=== PATIENT | female | born 1970 | race Caucasian/White ===

== ENCOUNTER → 2023-05-19 | Day surgery (SDC) | payer OTHER ==
[~2023-05-19] MED LIST: CEFAZOLIN SODIUM 1,000 MG VIAL IV ONE; CEFAZOLIN SODIUM 1,000 MG VIAL ONE; ENOXAPARIN SODIUM 40 MG/0.4 ML SYRINGE SUBCUTANEO ONE; EZETIMIBE-SIMV1 EACH; LIDOCAINE HCL/EPINEPHRINE 10MG/ML 1% 50ML IJ ONE; MAGNESIUM400 M1; NEXIUM; POVIDONE-IODINE 118 ML BOTT TOP ONE; VITAMIN B12; VITAMINA D3; ZESTORETIC 20-1 EACH
== END | disposition home or self-care (01) ==
LOC: ADM 05-18 15:00 → CIR.AMB 06:00
PROVIDERS: ATTEND Specialist
DX: T85.49XA Other mechanical complication of breast prosthesis and implant, initial encounter (principal); I10 Essential (primary) hypertension; K21.9 Gastro-esophageal reflux disease without esophagitis; E78.00 Pure hypercholesterolemia, unspecified